=== PATIENT | male | born 1990 | race Caucasian/White ===

== ENCOUNTER → 2018-07-15 | Outpatient (CLI) | payer MEDICARE, MEDICAID ==
[2018-07-15 16:48] LABS: EOS # 0.2 (0.04-0.40); EOS % 3.2 % (0.0-4.0); HEMATOCRIT 46.9 % (42.0-52.0); HEMOGLOBIN 15.8 g/dL (13.5-18.0); LYMPH# 2.2 (1.50-4.00); MEAN CELL VOLUME 84 fl (78-100); MEAN CORPUSCULAR HEMOGLOBIN 28 pg (27-31); MEAN CORPUSCULAR HGB CONC 34 g/dL (33-37); MEAN PLATELET VOLUME 9.8 fl (7.4-10.4); MONO # 0.6 (0.20-0.80); NEU # 4.6 (1.40-6.50); PLATELET COUNT 399 K/mm3 (130-400); RED BLOOD COUNT 5.58 M/mm3 (4.20-5.60); RED CELL DISTRIBUTION WIDTH 13.5 % (11.5-14.5); WHITE BLOOD COUNT 7.6 K/mm3 (4.8-10.8)
[2018-07-15 19:58] LABS: ERYTHROCYTE SEDIMENTATION RATE 3 mm/hr (0-15)
[2018-07-15 20:21] LABS: ALBUMIN 4.7 g/dL (3.5-5.0); CALCIUM 9.7 mg/dL (8.4-10.2); POTASSIUM 4.6 mmol/L (3.6-5.0); TOTAL BILIRUBIN 0.7 mg/dL (0.2-1.3); TOTAL PROTEIN 7.6 g/dL (6.3-8.2)
[2018-07-19 02:15] LABS: TESTOSTERONE 338 ng/dL (240-871)
== END ==
LOC: LAB 16:13
PROVIDERS: Internal Medicine
DX: G95.0 Syringomyelia and syringobulbia (principal); Q05.9 Spina bifida, unspecified; D17.79 Benign lipomatous neoplasm of other sites; E78.2 Mixed hyperlipidemia; R20.2 Paresthesia of skin; N52.9 Male erectile dysfunction, unspecified

== ENCOUNTER → 2018-08-25 | Outpatient (CLI) | payer MEDICARE, MEDICAID | LOC: CARDLAB 08-24 15:01 → CARDREHAB 14:34 | DX: R06.83 Snoring (principal); G47.10 Hypersomnia, unspecified; G47.33 Obstructive sleep apnea (adult) (pediatric); Z68.21 Body mass index [BMI] 21.0-21.9, adult | CPT/HCPCS: G0399 ==

== ENCOUNTER → 2018-09-19 | Outpatient (CLI) | payer MEDICARE, MEDICAID ==
[2018-09-19 16:03] LABS: EOS # 0.2 (0.04-0.40); EOS % 3.3 % (0.0-4.0); HEMATOCRIT 48.7 % (42.0-52.0); HEMOGLOBIN 16.6 g/dL (13.5-18.0); LYMPH# 1.9 (1.50-4.00); MEAN CELL VOLUME 82 fl (78-100); MEAN CORPUSCULAR HEMOGLOBIN 28 pg (27-31); MEAN CORPUSCULAR HGB CONC 34 g/dL (33-37); MEAN PLATELET VOLUME 10.4 fl (7.4-10.4); MONO # 0.6 (0.20-0.80); NEU # 3.1 (1.40-6.50); PLATELET COUNT 292 K/mm3 (130-400); RED BLOOD COUNT 5.94 M/mm3 (4.20-5.60); RED CELL DISTRIBUTION WIDTH 13.9 % (11.5-14.5); WHITE BLOOD COUNT 5.8 K/mm3 (4.8-10.8)
[2018-09-19 16:43] LABS: ALBUMIN 4.6 g/dL (3.5-5.0); CALCIUM 9.6 mg/dL (8.4-10.2); POTASSIUM 4.1 mmol/L (3.6-5.0); TOTAL BILIRUBIN 0.8 mg/dL (0.2-1.3); TOTAL PROTEIN 7.8 g/dL (6.3-8.2)
[2018-09-23 06:52] LABS: VITAMIN B1 102 nmol/L (70-180)
[2018-09-24 07:09] LABS: CORTISOL FREE SERUM 0.286 mcg/dL (())
== END ==
LOC: LAB 15:13
PROVIDERS: Internal Medicine
DX: G82.20 Paraplegia, unspecified (principal); K90.9 Intestinal malabsorption, unspecified; G43.909 Migraine, unspecified, not intractable, without status migrainosus

== ENCOUNTER 2018-10-10 13:00 | Outpatient (RCR) | payer MEDICARE, MEDICAID | END 2018-10-10 13:30 | disposition home or self-care (01) | LOC: PT 13:00 | DX: Q07.01 Arnold-Chiari syndrome with spina bifida (principal); G95.0 Syringomyelia and syringobulbia | CPT/HCPCS: G8978-GP; G8979-GP ==

== ENCOUNTER 2020-07-04 17:42 | Emergency (ER) | payer MEDICARE, MEDICAID ==
[2020-07-04 18:24] LABS: EOS # 0.3 (0.04-0.40); EOS % 2.2 % (0.0-4.0); HEMATOCRIT 41.6 % (42.0-52.0); HEMOGLOBIN 13.3 g/dL (13.5-18.0); LYMPH# 1.9 (1.50-4.00); MEAN CELL VOLUME 86 fl (78-100); MEAN CORPUSCULAR HEMOGLOBIN 27 pg (27-31); MEAN CORPUSCULAR HGB CONC 32 g/dL (33-37); MEAN PLATELET VOLUME 8.9 fl (7.4-10.4); MONO # 0.9 (0.20-0.80); RED BLOOD COUNT 4.85 M/mm3 (4.20-5.60); RED CELL DISTRIBUTION WIDTH 13.4 % (11.5-14.5); WHITE BLOOD COUNT 13.8 K/mm3 (4.8-10.8)
[2020-07-04 18:26] LABS: NEU # 10.6 (1.40-6.50); PLATELET COUNT 525 K/mm3 (130-400)
[2020-07-04 18:35] LABS: ALBUMIN 4.1 g/dL (3.5-5.0); POTASSIUM 4.1 mmol/L (3.5-5.1)
[2020-07-04 18:36] LABS: CALCIUM 9.5 mg/dL (8.3-10.5)
[2020-07-04 18:37] LABS: TOTAL PROTEIN 7.9 g/dL (6.4-8.3)
[2020-07-04 18:39] LABS: TOTAL BILIRUBIN 0.7 mg/dL (0.2-1.2)
[2020-07-04 19:02] LABS: URINE APPEARANCE CLEAR; URINE COLOR ORANGE; URINE GLUCOSE NEGATIVE (NEGATIVE); URINE KETONE NEGATIVE (NEGATIVE); URINE PROTEIN(semi-quant) 1+ mg/dL (NEGATIVE)
[2020-07-04 19:03] LABS: URINE BILIRUBIN NEGATIVE (NEGATIVE); URINE BLOOD TRACE (NEGATIVE); URINE LEUKOCYTE ESTERASE TRACE (NEGATIVE); URINE NITRATE NEGATIVE (NEGATIVE); URINE UROBILINOGEN 8 mg/dL (NORMAL)
[2020-07-04 19:04] LABS: URINE MUCUS PRESENT (NOT PRESENT)
[2020-07-04 22:06] VITALS: BP 96/75
[2020-07-04] MEDS ORDERED: LEXAPRO 10MG10 MG PO (22:18)
[2020-07-04] MEDS ORDERED: MIRALAX17 GM PO (22:18)
== END 2020-07-04 22:06 | disposition short-term general hospital (02) ==
LOC: ED 17:42
PROVIDERS: Nurse Practitioner
DX: K59.00 Constipation, unspecified (principal); A41.9 Sepsis, unspecified organism; L89.90 Pressure ulcer of unspecified site, unspecified stage; N39.0 Urinary tract infection, site not specified; F17.200 Nicotine dependence, unspecified, uncomplicated; F32.9 Major depressive disorder, single episode, unspecified; Z20.828 Contact with and (suspected) exposure to other viral communicable diseases; Z90.89 Acquired absence of other organs; Z88.1 Allergy status to other antibiotic agents; Z79.818 Long term (current) use of other agents affecting estrogen receptors and estrogen levels; Z79.899 Other long term (current) drug therapy
CPT/HCPCS: J2543; J7030; Q9967

== ENCOUNTER 2021-03-10 10:32 | Inpatient (IN) | payer MEDICARE, MEDICAID ==
[~2021-03-10 10:32] MED LIST: LEXAPRO 10MG10 MG PO; MIRALAX17 GM PO
[2021-03-10 15:34] VITALS: BP 118/70
[2021-03-10 15:39] LABS: BASO # 0.05 (0.02-0.10); EOS # 0.53 (0.04-0.40); EOS % 8.1 % (0.0-4.0); HEMATOCRIT 43.6 % (42.0-52.0); HEMOGLOBIN 13.6 g/dL (13.5-18.0); LYMPH# 2.54 (1.50-4.00); MEAN CELL VOLUME 79 fl (78-100); MEAN CORPUSCULAR HEMOGLOBIN 25 pg (27-31); MEAN CORPUSCULAR HGB CONC 31 g/dL (33-37); MEAN PLATELET VOLUME 9.3 fl (7.4-10.4); MONO # 0.46 (0.20-0.80); NEU # 2.93 (1.40-6.50); PLATELET COUNT 367 K/mm3 (130-400); RED BLOOD COUNT 5.53 M/mm3 (4.20-5.60); RED CELL DISTRIBUTION WIDTH 14.1 % (11.5-14.5); WHITE BLOOD COUNT 6.5 K/mm3 (4.8-10.8)
[2021-03-10 15:45] LABS: ALBUMIN 4.2 g/dL (3.5-5.0)
[2021-03-10 15:46] LABS: POTASSIUM 4.2 mmol/L (3.5-5.1)
[2021-03-10 15:47] LABS: CALCIUM 9.4 mg/dL (8.3-10.5)
[2021-03-10 15:48] LABS: TOTAL PROTEIN 7.5 g/dL (6.4-8.3)
[2021-03-10] MEDS ORDERED: DETROL LA 4MG4 MG PO (15:49)
[2021-03-10 15:50] LABS: TOTAL BILIRUBIN 0.2 mg/dL (0.2-1.2)
[2021-03-10] MEDS ORDERED: ULTRAM50 M1 PO (16:27)
[2021-03-10] MEDS ORDERED: CYCLOBENZAPRINE10 M1 PO (16:28)
[2021-03-10] MEDS ORDERED: BACLOFEN10 M1 PO (16:29)
[2021-03-10] MEDS ORDERED: BUTALBITAL, ACE1 TA2 PO (16:29)
[2021-03-10] MEDS ORDERED: TOPCARE LAXATIVE5 MG PO (16:31)
[2021-03-10] MEDS ORDERED: NEURONTIN300 M1 PO (16:32)
[2021-03-10] MEDS ORDERED: ACETAMINOPHEN500 M5 PO (16:33)
[2021-03-10] MEDS ORDERED: ZOFRAN4 M2 PO (16:34)
[2021-03-10] MEDS ORDERED: CIPRO 500MG TA500 MG PO (16:35)
[2021-03-10] MEDS ORDERED: ZINC OXIDE TP (16:37)
[2021-03-10 18:24] VITALS: BP 109/68
[2021-03-10 19:15] LABS: URINE APPEARANCE CLOUDY; URINE BILIRUBIN NEGATIVE (NEGATIVE); URINE BLOOD NEGATIVE (NEGATIVE); URINE COLOR YELLOW; URINE GLUCOSE NEGATIVE (NEGATIVE); URINE KETONE NEGATIVE (NEGATIVE); URINE LEUKOCYTE ESTERASE NEGATIVE (NEGATIVE); URINE NITRATE NEGATIVE (NEGATIVE); URINE PROTEIN(semi-quant) TRACE mg/dL (NEGATIVE); URINE UROBILINOGEN NORMAL (NORMAL); URINE WBC 0-1 /hpf (0-3)
[2021-03-11 05:56] VITALS: BP 132/81
[2021-03-11 17:32] VITALS: BP 133/75
[2021-03-12 06:13] VITALS: BP 118/69
[2021-03-12 15:35] VITALS: BP 126/77
[2021-03-13 05:50] VITALS: BP 142/79
[2021-03-13 17:22] VITALS: BP 109/67
[2021-03-14 06:23] VITALS: BP 136/72
[2021-03-14 18:00] VITALS: BP 135/82
[2021-03-15 05:54] VITALS: BP 136/74
[2021-03-15 17:19] VITALS: BP 131/82
[2021-03-16 06:00] VITALS: BP 119/72
[2021-03-16 17:25] VITALS: BP 98/62
[2021-03-17 05:47] VITALS: BP 109/61
[2021-03-17 15:41] VITALS: BP 101/64
[2021-03-18 05:33] VITALS: BP 137/66
[2021-03-18] MEDS ORDERED: VENELEX OINTMEN60 GM TP (10:02)
[2021-03-18] MEDS ORDERED: TRAMADOL 50 MG TAB PO (12:16)
[2021-03-18] MEDS ORDERED: ONDANSETRON HYDR4 MG PO (12:16)
[2021-03-18] MEDS ORDERED: FIORICET 325 MG1 TAB PO (12:16)
== END 2021-03-18 12:35 | disposition home or self-care (01) | DRG 947 ==
LOC: MED/SURG 10:32
PROVIDERS: ADMIT Nurse Practitioner
DX: R53.81 Other malaise (principal); L89.154 Pressure ulcer of sacral region, stage 4; N39.0 Urinary tract infection, site not specified; N31.9 Neuromuscular dysfunction of bladder, unspecified; Q05.9 Spina bifida, unspecified; G43.909 Migraine, unspecified, not intractable, without status migrainosus; K59.00 Constipation, unspecified; B96.5 Pseudomonas (aeruginosa) (mallei) (pseudomallei) as the cause of diseases classified elsewhere; Z79.891 Long term (current) use of opiate analgesic; Z87.891 Personal history of nicotine dependence; Z88.8 Allergy status to other drugs, medicaments and biological substances

== ENCOUNTER 2021-03-25 13:06 | Outpatient (RCR) | payer MEDICARE, MEDICAID ==
[~2021-03-25 13:06] MED LIST changes: +ACETAMINOPHEN500 M5 PO; +BACLOFEN10 M1 PO; +BUTALBITAL, ACE1 TA2 PO; +CIPRO 500MG TA500 MG PO; +CYCLOBENZAPRINE10 M1 PO; +DETROL LA 4MG4 MG PO; +FIORICET 325 MG1 TAB PO; +NEURONTIN300 M1 PO; +ONDANSETRON HYDR4 MG PO; +TOPCARE LAXATIVE5 MG PO; +TRAMADOL 50 MG TAB PO; +ULTRAM50 M1 PO; +VENELEX OINTMEN60 GM TP; +ZINC OXIDE TP; +ZOFRAN4 M2 PO
== END 2021-06-23 ==
LOC: PT
DX: Q07.00 Arnold-Chiari syndrome without spina bifida or hydrocephalus (principal)

== ENCOUNTER → 2021-04-15 | Outpatient (CLI) | payer MEDICARE, MEDICAID ==
[2021-04-15 15:40] LABS: BASO # 0.04 (0.02-0.10); EOS # 0.21 (0.04-0.40); EOS % 4.5 % (0.0-4.0); HEMATOCRIT 45.2 % (42.0-52.0); HEMOGLOBIN 14.1 g/dL (13.5-18.0); LYMPH# 2.14 (1.50-4.00); MEAN CELL VOLUME 80 fl (78-100); MEAN CORPUSCULAR HEMOGLOBIN 25 pg (27-31); MEAN CORPUSCULAR HGB CONC 31 g/dL (33-37); MEAN PLATELET VOLUME 9.9 fl (7.4-10.4); MONO # 0.34 (0.20-0.80); NEU # 1.96 (1.40-6.50); PLATELET COUNT 338 K/mm3 (130-400); RED BLOOD COUNT 5.68 M/mm3 (4.20-5.60); RED CELL DISTRIBUTION WIDTH 15.9 % (11.5-14.5); WHITE BLOOD COUNT 4.7 K/mm3 (4.8-10.8)
[2021-04-15 15:49] LABS: ALBUMIN 4.3 g/dL (3.5-5.0); POTASSIUM 4.3 mmol/L (3.5-5.1)
[2021-04-15 15:51] LABS: CALCIUM 9.6 mg/dL (8.3-10.5)
[2021-04-15 15:52] LABS: TOTAL PROTEIN 7.6 g/dL (6.4-8.3)
[2021-04-15 15:54] LABS: TOTAL BILIRUBIN 0.2 mg/dL (0.2-1.2)
== END ==
LOC: LAB 15:10
PROVIDERS: Family Medicine
DX: E87.1 Hypo-osmolality and hyponatremia (principal); D50.9 Iron deficiency anemia, unspecified; E55.9 Vitamin D deficiency, unspecified

== ENCOUNTER → 2021-11-04 | Outpatient (CLI) | payer MEDICARE, MEDICAID | LOC: LAB 15:49 | DX: K90.9 Intestinal malabsorption, unspecified (principal); R25.2 Cramp and spasm; F90.9 Attention-deficit hyperactivity disorder, unspecified type; G47.37 Central sleep apnea in conditions classified elsewhere; Q07.00 Arnold-Chiari syndrome without spina bifida or hydrocephalus; G82.20 Paraplegia, unspecified; L97.909 Non-pressure chronic ulcer of unspecified part of unspecified lower leg with unspecified severity; G60.9 Hereditary and idiopathic neuropathy, unspecified; G43.909 Migraine, unspecified, not intractable, without status migrainosus; F41.8 Other specified anxiety disorders; E78.2 Mixed hyperlipidemia; G95.0 Syringomyelia and syringobulbia; E55.9 Vitamin D deficiency, unspecified; E64.9 Sequelae of unspecified nutritional deficiency ==

== ENCOUNTER → 2022-11-09 | Day surgery (SDC) | payer MEDICARE, MEDICAID | LOC: MSO 07:43 | DX: K44.9 Diaphragmatic hernia without obstruction or gangrene (principal); K22.10 Ulcer of esophagus without bleeding; K21.00 Gastro-esophageal reflux disease with esophagitis, without bleeding; K59.2 Neurogenic bowel, not elsewhere classified; K59.09 Other constipation; Q05.9 Spina bifida, unspecified; G82.20 Paraplegia, unspecified | CPT/HCPCS: 00813; J2704; J7120 ==

== ENCOUNTER → 2024-10-19 | Outpatient (CLI) | payer MEDICARE, MEDICAID ==
[~2024-10-19] MED LIST changes: +KETOROLAC10 MG PO; +PHENERGAN 25 TA25 MG PO
[2024-10-19 14:12] LABS: BASO # 0.02 K/mm3 (0.02-0.10); EOS # 0.11 K/mm3 (0.04-0.40); EOS % 1.9 % (0.0-4.0); HEMOGLOBIN 17.9 g/dL (13.5-18.0); LYMPH# 1.97 K/mm3 (1.50-4.00); MEAN CELL VOLUME 86 fl (78-100); MEAN CORPUSCULAR HEMOGLOBIN 28 pg (27-31); MEAN CORPUSCULAR HGB CONC 33 g/dL (33-37); MEAN PLATELET VOLUME 9.4 fl (7.4-10.4); MONO # 0.38 K/mm3 (0.20-0.80); PLATELET COUNT 434 K/mm3 (130-400); WHITE BLOOD COUNT 5.9 K/mm3 (4.8-10.8)
[2024-10-19 14:17] LABS: ALBUMIN 4.9 g/dL (3.5-5.0)
[2024-10-19 14:18] LABS: CALCIUM 10.5 mg/dL (8.3-10.5)
[2024-10-19 14:19] LABS: TOTAL PROTEIN 8.7 g/dL (6.4-8.3)
[2024-10-19 14:21] LABS: TOTAL BILIRUBIN 0.8 mg/dL (0.2-1.2)
== END ==
LOC: LAB 13:52
PROVIDERS: Nurse Practitioner
DX: Z00.00 Encounter for general adult medical examination without abnormal findings (principal); D50.9 Iron deficiency anemia, unspecified